=== PATIENT | female | born 1985 | race Caucasian/White ===

== ENCOUNTER 2016-08-25 07:59 | Emergency (ER) | payer MEDICAID ==
[~2016-08-25] VITALS: Ht 160 cm; Wt 51.2 kg
[~2016-08-25 07:59] MED LIST: CLIN2CRE5 VAGINAL; ORTHTAB4 PO
[2016-08-25 08:03] VITALS: BP 125/82; PULSE 102; RESP 18; TEMP 98.8; O2SAT 97
[2016-08-25] MEDS ORDERED: AMOX500C PO (08:52)
--- NOTE | 2016-08-25 08:53 | PD ---
HPI Chief Complaint: Cold / Flu Symptoms Time Seen by Provider: 08:42 Travel History International Travel<30 days: No Contact w/Intl Traveler<30days: No Traveled to known affect area: No History of Present Illness HPI This 31-year-old female is complaining of sore throat. She's been having fever at home. She had a mild cough. She has pain with swallowing. She has some myalgias. She is generally healthy. She is not on any medication PFSH Past Medical History Diminished Hearing: No Immunizations Current: Yes Influenza Vaccination: No ?: Not : 3 Para: 3 Social History Alcohol Use: Yes (occ) Tobacco Use: Yes (07/07 PPD) Substance Use: No Allergies-Medications (Allergen,Severity, Reaction): Coded Allergies: No Known Allergies (Verified , 08/25/16) Reported Meds & Prescriptions Reported Meds & Active Scripts Active No Active Prescriptions or Reported Medications Review of Systems General / Constitutional: Positive: Fever, Chills Eyes: No: Diploplia HENT: Positive: Sore Throat, No: Headaches Cardiovascular: No: Chest Pain or Discomfort Respiratory: Positive: Cough Gastrointestinal: No: Vomiting, Diarrhea Genitourinary: No: Frequency Musculoskeletal: Positive: Myalgias Skin: No Rash, No Itching Neurologic: No: Weakness Physical Exam Narrative GENERAL: Well-developed female SKIN: Warm and dry. HEAD: Atraumatic. Normocephalic. EYES: Pupils equal and round. No scleral icterus. No injection or drainage. ENT: No nasal bleeding or discharge. Mucous membranes pink and moist. Posterior pharynx is erythematous. There is yellow exudate on the tonsils. There is bilateral anterior cervical adenopathy NECK: Trachea midline. No JVD. CARDIOVASCULAR: Regular rate and rhythm. No murmur appreciated. RESPIRATORY: No accessory muscle use. Clear to auscultation. Breath sounds equal bilaterally. GASTROINTESTINAL: Abdomen soft, non-tender, nondistended. Hepatic and splenic margins not palpable. MUSCULOSKELETAL: No obvious deformities. No clubbing. No cyanosis. No edema. NEUROLOGICAL: Awake and alert. No obvious cranial nerve deficits. Motor grossly within normal limits. Normal speech. PSYCHIATRIC: Appropriate mood and affect; insight and judgment normal. Data Data Last Documented VS Vital Signs Date Time Temp Pulse Resp B/P Pulse Ox O2 Delivery O2 Flow Rate FiO2 08/25/16 08:03 98.8 102 18 125/82 97 Room Air MDM Medical Decision Making Medical Screen Exam Complete: Yes Emergency Medical Condition: Yes Medical Record Reviewed: Yes Differential Diagnosis Differential includes tonsillitis, strep throat, viral syndrome Narrative Course Exam is most consistent with bacterial tonsillitis Diagnosis Primary Impression: Tonsillitis Additional Instructions: Tylenol or Motrin for pain and fever Scripts Amoxicillin 500 Mg [id number] Mg PO TID 10 Days Ref 0 Prov:Zbigniew Velásquez MD 08/25/16 Disposition: 01 DISCHARGE HOME Condition: Stable Zbigniew Velásquez MD Aug 25, 2016 08:53
== END 2016-08-25 09:00 | disposition home or self-care (01) ==
LOC: PHEFT 07:59
DX: J03.90 Acute tonsillitis, unspecified (principal); R50.9 Fever, unspecified; R05 Cough; M79.1 Myalgia; Z72.0 Tobacco use
CPT/HCPCS: 99283

== ENCOUNTER 2017-08-06 10:41 | Emergency (ER) | payer MEDICAID ==
[~2017-08-06] VITALS: Ht 160 cm; Wt 52.0 kg
[~2017-08-06 10:41] MED LIST changes: +AMOX500C PO; -CLIN2CRE5 VAGINAL; -ORTHTAB4 PO
[2017-08-06 10:43] VITALS: BP 126/79; PULSE 90; RESP 16; TEMP 98; O2SAT 100
--- NOTE | 2017-08-06 11:21 | PD ---
HPI Chief Complaint: Cold / Flu Symptoms Time Seen by Provider: 10:47 Travel History International Travel<30 days: No Contact w/Intl Traveler<30days: No Traveled to known affect area: No History of Present Illness HPI 30-year-old female that presents to the ED for evaluation of cold-like symptoms. Patient has had symptoms since last night. Per patient she has sore throat, congestion and headache as well as clammy hands. Per patient no sick contacts as far she knows. She denies any medical issues. Per patient the headache is 4 out of 10. Has been taking OTC meds with minimal relief. Patient concerned mainly about having influenza. Denies any chest pain or shortness of breath. No recent travel. No sick contacts at home. Symptoms worsened today with a sore throat and a headache. Denies any actual fevers or chills but states having sweats on her hands. PFSH Past Medical History Hx Anticoagulant Therapy: No Diabetes: No Diminished Hearing: No Immunizations Current: Yes ?: Not LMP: NOW : 3 Para: 3 Social History Alcohol Use: Yes (occ) Tobacco Use: Yes (1/2PPD) Substance Use: No Allergies-Medications (Allergen,Severity, Reaction): Coded Allergies: No Known Allergies (Verified Adverse Reaction, Unknown, 08/06/17) Reported Meds & Prescriptions Reported Meds & Active Scripts Active Magic Mouthwash Adult Liq (Multi-Ingredient Mouthwash/Gargle) 120 Ml Susp 5 Ml SWISH-SWAL ACHS Each 5mL contains: Nystatin 200,000units, Diphenhydramine 4.25mg, Viscous Lidocaine 10mg, Soriano syrup 0.8 mL Tamiflu (Oseltamivir Phosphate) 75 Mg Cap 75 Mg PO BID 5 Days Review of Systems Except as stated in HPI: all other systems reviewed are Neg Physical Exam Narrative GENERAL: Well-nourished, well-developed patient in no apparent distress. SKIN: Warm and dry. HEAD: Atraumatic. Normocephalic. EYES: Pupils equal and round reactive to light and accommodation. No scleral icterus. No injection or drainage. ENT: No nasal bleeding or discharge. Mucous membranes pink and moist. TMs are clear with no sign of infection or perforation. No mastoid tenderness. Ear canals are intact bilaterally. No lymphadenopathy. Nostril mucosa is red and moist with clear mucus noted. No sinus tenderness to palpation noted. Tonsils are not enlarged or swollen. No ulvua Deviation. Tongue is midline. NECK: Trachea midline. No JVD. No meningeal signs noted CARDIOVASCULAR: Regular rate and rhythm. RESPIRATORY: No accessory muscle use. Clear to auscultation. Breath sounds equal bilaterally. GASTROINTESTINAL: Abdomen soft, non-tender, nondistended. Hepatic and splenic margins not palpable. MUSCULOSKELETAL: Extremities without clubbing, cyanosis, or edema. No obvious deformities. NEUROLOGICAL: Awake and alert. No obvious cranial nerve deficits. Motor grossly within normal limits. Five out of 5 muscle strength in the arms and legs. Normal speech. PSYCHIATRIC: Appropriate mood and affect; insight and judgment normal. Data Data Last Documented VS Vital Signs Date Time Temp Pulse Resp B/P (MAP) Pulse Ox O2 Delivery O2 Flow Rate FiO2 08/06/17 10:43 98.0 90 16 126/79 (95) 100 Orders Orders Influenzae A/B Antigen (08/06/17 10:58) Ed Discharge Order (08/06/17 11:25) MDM Medical Decision Making Medical Screen Exam Complete: Yes Emergency Medical Condition: Yes Medical Record Reviewed: Yes Interpretation(s) flu negative Differential Diagnosis Influenza versus viral illness versus sinusitis versus pharyngitis Narrative Course 31-year-old female that presents to the ED for evaluation of cold-like symptoms. Patient was properly examined and was found to have signs and symptoms concerning for possible influenza. Influence of this was done and showed negative. This time is appears to be likely viral but we'll treat amoxicillin to cover for bacterial infection. I did told the patient is a possibility this could be a false negative as patient just her having symptoms less than 24 hours ago. I gave patient a prescription for Tamiflu to cover for this but I instructed her to not start only seen 2 days she started developing high fevers and body aches as well as worsening symptoms. She was told that if she does not develop high fevers or the body aches she does not need to take Tamiflu and discontinue the amoxicillin. She is in agreement with this plan. OTC meds were encouraged. Follow-up with PCP. See ED worsening symptoms. Diagnosis Primary Impression: Pharyngitis, acute Qualified Codes: J02.9 - Acute pharyngitis, unspecified Patient Instructions: General Instructions Additional Instructions: Motrin and Tylenol for pain and fever. You can use [id number] antihistamine as well as well as Mucinex as needed for runny nose and congestion. Cough drops for cough as needed. Drink plenty of fluids. Follow-up with PCP. See ED for worsening symptoms. Med/Other Pt SpecificInfo: Prescription(s) given Scripts Amoxicillin (Amoxicillin) 875 Mg Tab 875 MG PO BID for Infection for 10 Days, #20 TAB 0 Refills Prov: Aureliano Celaya MD 08/06/17 Cbqephbr-Lnvmnpjxiutgoee-Euslmuwtg Liq (Magic Mouthwash Adult Liq) 120 Ml Susp 5 ML SWISH-SWAL ACHS for Mouth sores, #120 ML 0 Refills Each 5mL contains: Nystatin 200,000units, Diphenhydramine 4.25mg, Viscous Lidocaine 10mg, Soriano syrup 0.8 mL Prov: Aureliano Celaya MD 08/06/17 Oseltamivir (Tamiflu) 75 Mg Cap 75 MG PO BID for Mgmt Viral Infection for 5 Days, #10 CAP 0 Refills Prov: Aureliano Celaya MD 08/06/17 Disposition: 01 DISCHARGE HOME Condition: Stable Perry Moran Aug 06, 2017 11:21
[2017-08-06] MEDS ORDERED: OSEL75 PO (11:24)
[2017-08-06] MEDS ORDERED: MAGICADU2 SWISH-SWAL (11:24)
[2017-08-06] MEDS ORDERED: AMOX875T PO (11:29)
== END 2017-08-06 11:38 | disposition home or self-care (01) ==
LOC: PHEFT 10:41
DX: J02.9 Acute pharyngitis, unspecified (principal); F17.200 Nicotine dependence, unspecified, uncomplicated
CPT/HCPCS: 87804; 99283

== ENCOUNTER 2017-12-05 08:45 | Emergency (ER) | payer MEDICAID ==
[~2017-12-05] VITALS: Ht 160 cm; Wt 53.8 kg
[~2017-12-05 08:45] MED LIST changes: -AMOX500C PO; +AMOX875T PO; +MAGICADU2 SWISH-SWAL; +OSEL75 PO
[2017-12-05 08:47] VITALS: BP 125/77; PULSE 97; RESP 16; TEMP 99.4; O2SAT 98
[2017-12-05] MEDS ORDERED: predniSONE 50 MG TAB PO ONE (09:15)
[2017-12-05] MEDS ORDERED: RESP: ALBUTEROL 2.5 MG/3 ML NEB (SCH) INH ONE (09:15)
--- NOTE | 2017-12-05 09:34 | PD ---
HPI Chief Complaint: Cold / Flu Symptoms Time Seen by Provider: 09:11 Travel History International Travel<30 days: No Contact w/Intl Traveler<30days: No Traveled to known affect area: No History of Present Illness HPI 32-year-old female presents emergency department for evaluation of cough, congestion, body aches, post tussive nausea started . Says that her son had a sinusitis and other infections and believes that she became sick because of him. She says that she has had a low-grade fever but does not actually know the temperature. She says that she had leftover amoxicillin is decided to start taking this medication but she has had no improvement. She denies paraspinous tenderness or neck pain. She denies shortness of breath or chest pain. Says she has some difficulty taking a deep breath but again denies shortness of breath or chest pain. She has been using Mucinex and NyQuil with minimal relief. She denies vomiting or diarrhea. Denies chronic medical issues medication use. She has no other complaints today. PFS Past Medical History Medical History: Denies Significant Hx Hx Anticoagulant Therapy: No Diabetes: No Diminished Hearing: No Immunizations Current: Yes Influenza Vaccination: No ?: Not LMP: LAST MONTH : 3 Para: 3 Past Surgical History Surgical History: No Previous Surgery Social History Alcohol Use: Yes ([facility]) Tobacco Use: Yes (1/2PPD) Substance Use: No Allergies-Medications (Allergen,Severity, Reaction): Coded Allergies: No Known Allergies (Verified Adverse Reaction, Unknown, 12/05/17) Reported Meds & Prescriptions Reported Meds & Active Scripts Active Azithromycin 250 Mg Tab 250 Mg PO DIRECTED Take 2 tabs (500 mg) on day 1 then 1 tab daily x 4 days. Albuterol Neb (Albuterol Sulfate) 2.5 Mg/0.5 Ml Neb 2.5 Mg NEB Q6HR NEB PRN 14 Days Note: The Albuterol Sulfate Inhalation Solution is concentrated and must be diluted. Read complete instructions carefully before using. Medrol Dosepak (Methylprednisolone) 4 Mg Dspk 4 Mg PO DIRECTED Per Pharmacist direction Review of Systems Except as stated in HPI: all other systems reviewed are Neg Physical Exam Narrative GENERAL: Well-developed, well-nourished no apparent distress SKIN: Focused skin assessment warm/dry. HEAD: Atraumatic. Normocephalic. EYES: Pupils equal and round. No scleral icterus. No injection or drainage. PERRLA ENT: No nasal bleeding or discharge. Mucous membranes pink and moist. NECK: Trachea midline. No JVD. No lymphadenopathy CARDIOVASCULAR: Regular rate and rhythm. No murmur appreciated. RESPIRATORY: No accessory muscle use. Clear to auscultation. Breath sounds equal bilaterally. No wheezes, rales or rhonchi GASTROINTESTINAL: Abdomen soft, non-tender, nondistended. No CVA tenderness MUSCULOSKELETAL: No obvious deformities. No clubbing. No cyanosis. No edema. NEUROLOGICAL: Awake and alert. No obvious cranial nerve deficits. Motor grossly within normal limits. Normal speech. PSYCHIATRIC: Appropriate mood and affect; insight and judgment normal. Data Data Last Documented VS Vital Signs Date Time Temp Pulse Resp B/P (MAP) Pulse Ox O2 Delivery O2 Flow Rate FiO2 12/05/17 09:39 95 21 12/05/17 09:15 Room Air 12/05/17 08:47 99.4 97 16 125/77 (93) Orders Orders Albuterol Neb (Albuterol Neb) (12/05/17 09:15) Prednisone (Deltasone) (12/05/17 09:15) Ed Discharge Order (12/05/17 10:05) MDM Medical Decision Making Medical Screen Exam Complete: Yes Emergency Medical Condition: Yes Differential Diagnosis influenza, URI, pneumonia, bronchitis, pneumonitis, bronchospasm Narrative Course 32-year-old female presents emergency department for evaluation of cough, congestion, body aches, post tussive nausea started . Says that her son had a sinusitis and other infections and believes that she became sick because of him. She says that she has had a low-grade fever but does not actually know the temperature. She says that she had leftover amoxicillin is decided to start taking this medication but she has had no improvement. She denies paraspinous tenderness or neck pain. She denies shortness of breath or chest pain. Says she has some difficulty taking a deep breath but again denies shortness of breath or chest pain. She has been using Mucinex and NyQuil with minimal relief. She denies vomiting or diarrhea. Denies chronic medical issues medication use. She has no other complaints today. Vital signs are stable. Physical exam findings consistent with viral bronchitis versus influenza versus viral syndrome. Albuterol neb and prednisone 50 mg administered emergency department. Patient be discharged with albuterol and prednisone. Says she has a nebulizer at home along with supplies. Azithromycin if her symptoms persist or worsen in the next 2-3 days. She should follow-up with her primary care physician. Return for worsening or persistent symptoms. Diagnosis Primary Impression: Bronchitis Additional Impression: Viral syndrome Referrals: Primary Care Physician Additional Instructions: You may use a drop of honey and lemon in a cup of warm water to soothe your cough. (If you are greater than 1 year old ) Ensure good hydration and a nutritious diet. Note that viral infection symptoms may last for several weeks if you have a viral illness. Follow up with your primary physician within 2-3 days. Return to the ED for worsening or persistent symptoms. If you do not feel better or feel worse in 2-3 days, start azithromycin. Scripts Azithromycin (Azithromycin) 250 Mg Tab 250 MG PO DIRECTED for Infection, #6 TAB 0 Refills Take 2 tabs (500 mg) on day 1 then 1 tab daily x 4 days. Prov: Aicha Barajas DO 12/05/17 Albuterol Neb (Albuterol Neb) 2.5 Mg/0.5 Ml Neb 2.5 MG NEB Q6HR NEB Y for SOB/WHEEZING for 14 Days, #1 BOX Note: The Albuterol Sulfate Inhalation Solution is concentrated and must be diluted. Read complete instructions carefully before using. Prov: Aicha Barajas DO 12/05/17 Methylprednisolone Dosepak (Medrol Dosepak) 4 Mg Dspk 4 MG PO DIRECTED, #1 DSPK 0 Refills Per Pharmacist direction Prov: Aicha Barajas DO 12/05/17 Disposition: 01 DISCHARGE HOME Condition: Stable Roselia Vera Dec 05, 2017 09:34
[2017-12-05] MEDS ORDERED: MEDR4PAK PO (09:35)
[2017-12-05] MEDS ORDERED: ALBU.5I NEB (09:35)
[2017-12-05] MEDS ORDERED: AZIT250T3 PO (09:38)
[2017-12-05 09:39] VITALS: O2SAT 95
== END 2017-12-05 10:20 | disposition home or self-care (01) ==
LOC: PHED 08:45
DX: J20.8 Acute bronchitis due to other specified organisms (principal); F17.200 Nicotine dependence, unspecified, uncomplicated; Z79.51 Long term (current) use of inhaled steroids; Z79.899 Other long term (current) drug therapy
CPT/HCPCS: 94664; 99283; J7512; J7613